=== PATIENT | male | born 1955 | race Caucasian/White ===

== ENCOUNTER 2024-08-21 13:34 | Inpatient (IN) | payer MEDICARE, SELFPAY ==
[2024-08-20] VITALS (7 sets, daily range): BP systolic 91–158; BP diastolic 59–91
[2024-08-20 12:44] LABS: % Eosinophils 5.2 % (0-6); % Immature Granulocytes 0.2 % (0-0.5); % Lymphocytes 9.8 % (20.5-51.1); % Monocytes 9.4 % (1.7-9.3); % Neutrophils 74.4 % (42.2-75.2); Absolute Basophils 0.1 10^3/uL (0-0.2); Absolute Eosinophils 0.5 10^3/uL (0-0.7); Absolute Lymphocytes 0.9 10^3/uL (1.2-3.4); Absolute Monocytes 0.8 10^3/uL (0.1-0.6); Absolute Neutrophils 6.4 10^3/uL (1.4-6.5); Hematocrit 32.5 % (39.0-52.0); Mean Corp Hgb Conc. 30.8 g/dL (33.0-37.0); Mean Corpuscular Hgb 25.8 pg (27.0-31.0); Mean Corpuscular Volume 83.8 fL (80.0-94.0); Mean Platelet Volume 9.5 fL (7.4-10.4); Nucleated Red Blood Cells % 0 % (-); Platelet Count 220 10^3/uL (130-400); Red Blood Cell Count 3.88 10^6/uL (4.70-6.10); Red Cell Dist. Width 16.4 % (11.5-14.5); White Blood Cell Count 8.7 10^3/uL (4.8-10.8)
[2024-08-20 13:16] LABS: Blood Urea Nitrogen 26 mg/dl (9-20); Calcium 7.5 mg/dl (8.4-10.2); Carbon Dioxide 24 mmol/L (22-30); Chloride 108 mmol/L (98-107); Glucose 137 mg/dl (70-99); Sodium 142 mmol/L (135-145); eGFR > 60.00
[2024-08-20 13:17] LABS: Troponin I 0.035 ng/ml
[2024-08-20] MEDS: NSS 500 IV (14:13)
[2024-08-20 14:42] LABS: Potassium 3.7 mmol/L (3.5-5.1)
[2024-08-20 17:38] LABS: Urine Albumin 4+ (Neg - Trace); Urine Bilirubin Negative (Negative); Urine Character Cloudy (Clear); Urine Color Yellow; Urine Glucose Negative (Negative); Urine Ketone Negative (Negative); Urine Leukocyte 3+ (Negative); Urine Nitrite Positive (Negative); Urine Occult Blood 4+ (Negative); Urine Urobilinogen Negative (Neg - 1+)
[2024-08-20 17:49] LABS: Urine White Cell 26-30 /HPF (0-5)
[2024-08-20 17:50] LABS: Urine Bacteria Many (Negative)
--- NOTE | 2024-08-20 18:06 | ED.GENMED ---
History of Present Illness
General
Chief Complaint: Weakness
Time Seen by Provider: 08/20/24 13:48
History of Present Illness
History of Present Illness:
68-year-old male with history of insulin-dependent diabetes, hypertension, hyperlipidemia, and congestive heart failure presents to the emergency department for evaluation of weakness and nausea beginning this morning. He feels that he cannot
ambulate steadily, typically uses a walker but required assist of 2 to get out of the wheelchair in the ER today. Denies any vomiting or diarrhea. No new medications. Denies fevers or chills.
Past History
Past History
ED Past Medical History: HTN, Hypercholesterolemia, NIDDM and Other
ED Past Surgical History: Other
Social History
Tobacco: Smoker
Alcohol: None
Drug: None
Living: snf
Employment: Not employed
Family History
Family History: Other (Noncontributory)
Review of Systems
Review of Systems
Allergies reviewed?: Yes
All Other Systems: ROS reviewed and negative except as documented in HPI and ROS
Phy Exam
Physical Exam
Physical Exam:
GEN: Well appearing, NAD, WDWN
Eyes: PERRLA, EOMs intact, no scleral icterus
HENT: NCAT, oral mucosa moist, no JVD, no cervical adenopathy.
Lungs: CTAB, no wheezes, rales, rhonchi, normal chest wall excursion
Cardiac: RRR, no M/R/G, no peripheral edema. Radial pulses 2+ bilat
Abdomen: S, NT, ND, NABS, no masses or hepatosplenomegaly
Neuro: AO x 3
MSK: No gross deformity or ecchymosis. No edema. No digital clubbing
Skin: No rashes, petechiae. Normal color, no pallor or jaundice.
Psych: Calm, cooperative, proper hygiene
Course
Orders/Labs/Results
Orders:
Orders
08/20/24 12:29
Electrocardiogram (*1) Urgent
Reason for Study: Fatigue / Weakness
EKG- Treatment ONCE
08/20/24 12:30
Basic Metabolic Panel Urgent
Complete Blood Count/With Diff Urgent
Troponin I Urgent
08/20/24 14:05
0.9% Sodium Chloride 500 ml [Nss] 500 ml IV BOLUS
CR Chest - 2 Views Urgent
Comment:
Reason For Exam: weakness
08/20/24 14:09
ALT (SGPT) Urgent
Comment: ADD ON
AST (SGOT) Urgent
Comment: ADD ON
Alkaline Phosphatase Urgent
Comment: ADD ON
Creatine Phosphokinase Urgent
Comment: ADD ON
Magnesium Urgent
Comment: ADD ON
Phosphorus Urgent
Comment: ADD ON
Potassium Urgent
TSH Reflex To Free T4 Urgent
Comment: ADD ON
Total Bilirubin Urgent
Comment: ADD ON
Vitamin B12 Urgent
Comment: ADD ON
08/20/24 16:35
Bedside Glucose- Treatment ONCE
08/20/24 17:32
Urinalysis Reflex To Culture Urgent
Date Specimen was Collected: 08/20/24
Time Specimen was Collected: 14:06
Urine Microscopic Reflex Cult Urgent
Urine Culture Urgent
AUBRIE Source: U
Specimen Description:
Date Specimen was Collected: 08/20/24
Time Specimen was Collected: 14:06
08/20/24 18:04
CefTRIAXone [Rocephin] 1,000 mg IV NOW STA
08/20/24 18:16
Vancomycin HCl [Firvanq] 125 mg PO NOW STA
08/20/24 18:22
Add On- LAB Urgent
Tests Added?: magnesium, phosphorous, AST, ALT, T. Bili, Alk Phos
08/20/24 18:40
Admit/Transfer Patient As Directed
Co-Sign Provider:
Level of Care: Observation services
Assign to:: Medical/Surgical
Physician / Group: Sandrine Jimenez
Diagnosis: generalized weakness/ possible UTI versus viral
PRN Pain Medication Management As Directed
May give lesser potent ordered pain med per pt: Yes
preference::
Protocol:: Medication orders for pain may be administered in a
manner that supports deferring to patient preference
when the pt is:
- Requesting an ordered lesser potent pain medication.
Least to most potent pain medications are defined
as: acetaminophen < NSAID < tramadol < opioids
(morphine, oxycodone, hydromorphone).
- Requesting a lesser dose of the same medication IF
ORDERED.
- Requesting a less intrusive route of administration
if both routes are prescribed by the provider (PO <
IV).
08/20/24 18:41
Add On- LAB Routine
Tests Added?: creatinine kinase
08/20/24 18:42
Code Status As Directed
Resuscitation Status: Full Code
08/20/24 18:44
COVID-19 Antigen Urgent
Source: Nasal Swab
Influenza A+B Rapid Molecular Urgent
AUBRIE Source: Nasal Swab
Specimen Description:
08/20/24 18:45
Add On- LAB Routine
Tests Added?: vitamin B12, TSH with reflex to T4
Troponin I Q6H
08/21/24 00:45
Troponin I Q6H
08/21/24 06:45
Troponin I Q6H
Abnormal Lab Results
08/20/24 08/20/24 08/20/24
12:30 17:32 18:16
RBC 3.88 L 10^6/uL
(4.70-6.10)
Hgb 10.0 L g/dL
(13.0-18.0)
Hct 32.5 L %
(39.0-52.0)
MCH 25.8 L pg
(27.0-31.0)
MCHC 30.8 L g/dL
(33.0-37.0)
RDW 16.4 H %
(11.5-14.5)
Absolute Lymphs (auto) 0.9 L 10^3/uL
(1.2-3.4)
Absolute Monos (auto) 0.8 H 10^3/uL
(0.1-0.6)
Lymphocytes % 9.8 L %
(20.5-51.1)
Monocytes % 9.4 H %
(1.7-9.3)
Chloride 108 H mmol/L
(98-107)
BUN 26 H mg/dl
(9-20)
Glucose 137 H mg/dl
(70-99)
Calcium 7.5 L mg/dl
(8.4-10.2)
Troponin I 0.035 H* ng/ml
Ur Occult Blood Reflex 4+ A
(Negative)
Urine Nitrite (Reflex) Positive A
(Negative)
Leukocyte Esterase Rfl 3+ A
(Negative)
Urine RBC 3-6 A /HPF
(0-2)
Urine WBC (Reflex) 26-30 A /HPF
(0-5)
Urine Bacteria (Reflex) Many A
(Negative)
Urine Albumin (Reflex) 4+ A
(Neg - Trace)
POC Glucose 113 H mg/dl
(70-99)
08/20/24 12:30
08/20/24 14:09
Vital Signs
Initial and Last Documented VS:
Initial Vital Signs
Temp Pulse Resp BP Pulse Ox
98.2 F 75 18 146/68 98
08/20/24 12:27 08/20/24 12:27 08/20/24 12:27 08/20/24 12:27 08/20/24 12:27
Last Documented Vital Signs
Temp Pulse Resp BP Pulse Ox
98.2 F 67 18 91/73 97
08/20/24 12:27 08/20/24 17:44 08/20/24 17:44 08/20/24 17:44 08/20/24 17:44
MDM/Problems Addressed
MDM/Problems Addressed:
Patient's urinalysis is positive suggesting acute UTI as a of his weakness. Prior urine cultures reviewed showing there should be adequate sensitivity to cephalosporins, Rocephin ordered. Oral vancomycin also given due to recent history of C.
difficile colitis. Will admit to the hospital service due to severe weakness associated with UTI
*Critical Care Note
Total Time (30-74mins, 75-104mins- exclusive of procedures): Not Applicable
Update Note
Update Note:
Addendum: In regards to the patient's troponin elevation it is minimal at this time and is quite consistent with prior troponin assessments. His EKG shows changes compatible with LVH which has been noted on prior EKG tracings.
ED Attending Note
-
Portions of this chart may have been created with voice recognition software.� Occasional wrong word or��sound alike� substitutions may have occurred due to the inherent limitations of voice recognition software.
Discharge Plan
Departure
Patient Disposition: Admit
Date of Disposition: 08/20/24
Time of Disposition: 18:09
Admit to: Med/Surg
Presentation/result/management discussed w/ accepting MD/DO: Hospitalist
Discharge Problem:
Urinary tract infection
Prescriptions:
No Action
atorvastatin 80 mg tablet
80 mg PO HS
carvedilol 3.125 mg tablet
3.125 mg PO BID
gabapentin 300 mg Capsule
300 mg PO Q8H
sertraline 50 mg tablet
25 mg PO HS
lansoprazole 15 mg Capsule,Delayed Release(Dr/Ec)
15 mg PO DAILY
insulin lispro [Humalog U-100 Insulin] 100 unit/mL Solution
0 sliding scale dose SC DIRECTED
Rx Instructions:
06/16/2023, if 141-200 = 1 unit; 201-250 = 2 units; 251-300 = 3 units; 301-350 = 4 units; 351+ = 5 units.
potassium chloride 20 mEq Tablet,Er Particles/Crystals
20 meq PO DAILY Qty: 0 0RF
furosemide [Lasix] 80 mg tablet
40 mg PO BID
Referrals:
Kilo Jones I., DO [Family Provider] -
Interventions
Interventions:
*Risk Screen - Suicide Last Done: 08/20/24 12:27
*Neglect/Abuse Screening Last Done: 08/20/24 12:27
ED- Fall Risk Assessment Last Done: 08/20/24 14:21
ED- Cardiac Assessment Last Done: 08/20/24 14:21
ED- Neurological Assessment Last Done: 08/20/24 14:21
ED- Pulmonary Assessment Last Done: 08/20/24 14:21
Discharge Date and Time
Print Language: UGANDAN
--- NOTE | 2024-08-20 18:16 | HPS.HSE ---
Addendum entered and electronically signed by Sandrine Jimenez MD 08/20/24 23:53:
SCD's for DVT PPx; avoid lovenox in setting of coagulapathy
Addendum entered and electronically signed by Sandrine Jimenez MD 08/20/24 19:47:
continue oral Vanc for C. Diff prophylaxis while on antibiotics given hx C. diff
Original Note:
Family Physician
-
Family Physician: Kilo Jones
Chief Complaint
-
weakness
History of Present Illness
Mr. Homer Epps is a 68 yo man with hx C. 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
weakness and nausea.
At baseline patient uses a walker but required assist of 2 to get out of wheelchair in ER today. He states he was in usual state of health yesterday but woke up today not feeling well. No fevers. No chest pain. No vomiting or diarrhea but feels
nauseated and very weak. No abdominal pain and no dysuria.
He lives at home in a split level with family which includes two high-school aged kids. No one is currently sick at home.
Medical History
Past Medical History
Past Medical History: Reports Other
Additional Past Medical History:
Past medical history reviewed
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
Diabetes mellitus
Hypertension
Peripheral vascular disease
Multivalvular heart disease
Ambulatory dysfunction
History of acute blood loss anemia attributed to GI bleed
Recurrent GI bleed
Chronic kidney disease with recent acute renal failure
Diabetic foot on the right foot status post skin graft
Social history: Currently resident of snf, no smoking alcohol use, ambulate with physical therapist assistant.
Family history: Positive hypertension, diabetes, carotid disease and stroke
Past Surgical History: Reports Other
Social History
Unable to obtain full social history at this time due to: Other
Family History
Family History: Other
Allergies / Home Medications
Allergies reflects when Allergies were last updated in [email or web address].
Home Medications with original date entered in [email or web address]
Allergy/Medication List:
Allergies
Allergy/AdvReac Type Severity Reaction Status Date / Time
No Known Allergies Allergy Verified 08/20/24 12:29
Home Medications
atorvastatin 80 mg tablet 80 mg PO HS High cholesterol 11/22/22
carvedilol 3.125 mg tablet 3.125 mg PO BID Blood pressure 11/22/22
gabapentin 300 mg capsule 300 mg PO Q8H Neurological Condition 11/22/22
sertraline 50 mg tablet 25 mg PO HS Mental Health/Anxiety 04/18/23
insulin lispro 100 unit/mL subcutaneous solution (Humalog U-100 Insulin) 0 sliding scale dose SC DIRECTED Diabetes 06/16/23
lansoprazole 15 mg capsule,delayed release 15 mg PO DAILY Gastrointestinal Issue 06/16/23
potassium chloride 20 mEq tablet,extended release(part/cryst) 20 meq PO DAILY Electrolyte Repletion #0 tabs 06/30/23
furosemide 80 mg tablet (Lasix) 40 mg PO BID Fluid retention/Swelling 08/20/24
Review of Systems
-
History Source: Patient
A 12 point ROS was completed and negative except as noted: Yes
Physical Exam
Vital Signs
Vital Signs
Temp Pulse Resp BP Pulse Ox
98.2 F 67 18 91/73 97
08/20/24 12:27 08/20/24 17:44 08/20/24 17:44 08/20/24 17:44 08/20/24 17:44
Physical Exam
General: No Apparent Distress and Conversant
HEENT: PERRLA
Respiratory: Clear; No Wheezes
Cardiac: S1/S2 and Regular Rhythm
GI: Soft and Non Tender
Musculoskeletal: No Edema
Skin: Warm and Dry; No Rash
Neuro: AO x 3 and Nonfocal/grossly intact (generalized weakness)
Psych: Calm
Laboratory Results
-
08/20/24 12:30
08/20/24 14:09
Laboratory Results
Total Bilirubin Cancelled 08/20/24 12:30
AST Cancelled 08/20/24 12:30
ALT Cancelled 08/20/24 12:30
Alkaline Phosphatase Cancelled 08/20/24 12:30
Troponin I 0.035 ng/ml H* 08/20/24 12:30
Data Reviewed
-
Diagnostic Radiology: Report Reviewed by me
Lab Data: Labs Reviewed by me
Impression/Plan
-
Mr. Homer Epps is a 68 yo man with hx C. 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
weakness and nausea.
Triage VS: T 98.2, P 75, RR 18, BP 146/68, SpO2 98%
LABS: Na 142, K+ 3.7, Cl 108, CO2 24, BUN 26, Cr 1.1, Glucose 137, Ca 7.5, WBC 8.7, Hg 10.0, PLT 220
Trop 0.035
UA with 26-30 WBC
CXR
IMPRESSION:
No active cardiopulmonary disease.
Weakness
-possible UTI versus viral infection
-check Flu and covid
-admit to observation
-PT/OT
Non-Ischemic OR Troponin Elevation
-denies chest pain, will trend Troponin
HFmrEF
-resume home Lasix dosing tomorrow with K repletion
-patient appears euvolemic on exam
-INSURANCE ADJUSTOR Coreg
IDDM
-patient is only on sliding scale at home
-ISS low
-diabetic diet
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
-anti-pLT avoided per prior notes
Essential HtN
-INSURANCE ADJUSTOR Coreg
HLD
-added on CK, hold statin until results
GERD - INSURANCE ADJUSTOR PPI
Depression - INSURANCE ADJUSTOR Zoloft
DVT PPx lovenox subQ
FULL CODE
[2024-08-20 18:17] LABS: Glucose - Point of Care 113 mg/dl (70-99)
[2024-08-20] MEDS: ROCEPHIN 1000 MG IV (18:19)
[2024-08-20 19:14] LABS: ALT (SGPT) 12 U/L (0-50); AST (SGOT) 15 U/L (17-59); Alkaline Phosphatase 95 U/L (38-126); Creatine Phosphokinase 55 U/L (55-170); Magnesium 1.8 mg/dl (1.6-2.3); Total Bilirubin 0.8 mg/dl (0.2-1.3)
[2024-08-20 19:26] LABS: COVID-19 Antigen Negative (Negative)
[2024-08-20 20:09] LABS: TSH Reflex To Free T4 2.43 uIU/ml (0.47-4.68)
[2024-08-20 20:28] LABS: Vitamin B12 361 pg/ml (239-931)
[2024-08-20] MEDS: FIRVANQ 125 MG PO (21:01)
[2024-08-20 21:39] LABS: Troponin I 0.194 ng/ml
[2024-08-21] VITALS (21 sets, daily range): BP systolic 130–166; BP diastolic 47–80; PULSE 67; O2SAT 97; BMI 26.4
[2024-08-21] MEDS: NEURONTIN 300 MG PO ×4 (01:30→21:18)
[2024-08-21] MEDS: LIPITOR 80 MG PO ×2 (01:30→21:18)
[2024-08-21] MEDS: ZOLOFT 25 MG PO ×2 (01:30→21:18)
[2024-08-21] MEDS: COREG 3.125 MG PO ×3 (01:30→21:18)
[2024-08-21 02:08] LABS: Troponin I 0.201 ng/ml
[2024-08-21 05:59] LABS: Hematocrit 29.4 % (39.0-52.0); Mean Corp Hgb Conc. 30.6 g/dL (33.0-37.0); Mean Corpuscular Hgb 25.6 pg (27.0-31.0); Mean Corpuscular Volume 83.5 fL (80.0-94.0); Platelet Count 192 10^3/uL (130-400); Red Blood Cell Count 3.52 10^6/uL (4.70-6.10); Red Cell Dist. Width 16.1 % (11.5-14.5); White Blood Cell Count 6.9 10^3/uL (4.8-10.8)
[2024-08-21 06:23] LABS: Blood Urea Nitrogen 25 mg/dl (9-20); Carbon Dioxide 25 mmol/L (22-30); Chloride 109 mmol/L (98-107); Glucose 120 mg/dl (70-99); Magnesium 1.9 mg/dl (1.6-2.3); Potassium 3.5 mmol/L (3.5-5.1); Sodium 142 mmol/L (135-145); eGFR > 60.00
[2024-08-21 07:26] LABS: Troponin I 0.187 ng/ml
[2024-08-21 09:30] LABS: Glucose - Point of Care 115 mg/dl (70-99)
[2024-08-21] MEDS: NOVOLOG FLEXPEN-LOW RESISTANCE SC (09:37)
[2024-08-21] MEDS: PROTONIX 20 MG PO (09:39)
[2024-08-21] MEDS: FIRVANQ 125 MG PO ×2 (09:39→21:20)
[2024-08-21] MEDS: KCL 20 MEQ PO (09:39)
[2024-08-21] MEDS: LASIX 40 MG PO ×2 (09:39→15:35)
[2024-08-21 10:05] LABS: Glycohemoglobin (HgbA1c) 5.7 % (4.0-5.6)
--- NOTE | 2024-08-21 12:33 | W.PN.HOSP.TC ---
Today's Communication/Plan
-
continue IV abx pending culture
C. Diff prophylaxis
Echo for abnormal trops
Assessment / Plan
Assessment / Plan
Assessment:
Generalized weakness
- possible viral etiology vs UTI (UA abnormal)
- COVID/Flu negative. CXR negative-
- empiric Rocephin, day 1 pending culture
- PT/OT
Prior hx of C. Diff
- continue PO Vanco prophylaxis while on IV Abx
Non-Ischemic PR Troponin Elevation
- denies chest pain
- trop peaked .201
- 2D echo
HFmrEF
- continue Lasix with concurrent Kcl replacement
- patient appears euvolemic on exam
- HELPER MARBLE FINISHER Coreg
IDDM
- patient is only on sliding scale at home
- ISS low
- diabetic diet
- A1c 5.7%
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
- anti-pLT and anti-coags to be avoided per prior notes from hematology
- if signs of bleeding, will need to contact hematology urgently
Chronic stable anemia
- monitor Hb
Essential HtN
- HELPER MARBLE FINISHER Coreg
HLD
- continue Statin
GERD - HELPER MARBLE FINISHER PPI
Depression - HELPER MARBLE FINISHER Zoloft
DVT ppx: SCDs
Code: Full
Anticipated Discharge: > 48 hours
Subjective/Interval History
-
Date of Service: August 21, 2024
denies any complaints currently
Objective Data
-
Labs:
Laboratory Results
08/21/24
05:44
WBC 6.9
Hgb 9.0 L
Hct 29.4 L
Plt Count 192
Sodium 142
Potassium 3.5
Chloride 109 H
Carbon Dioxide 25
BUN 25 H
Creatinine 1.1
Glucose 120 H
Calcium 8.0 L
Vital Signs:
Vital Signs
Temp Pulse Resp BP Pulse Ox
97.5 F 72 23 155/70 97
08/21/24 08:59 08/21/24 09:15 08/21/24 09:15 08/21/24 09:08 08/21/24 08:45
Physical Exam
-
General: No Apparent Distress
HEENT: Normocephalic and Atraumatic
Respiratory: Negative Wheezes
Cardiac: Regular Rhythm and S1/S2
GI: Soft and Nontender
Musculoskeletal: No Edema
Neuro: AO x 3
Psych: Calm
Data Reviewed
-
Total Time Spent with Patient (in minutes): 41
Labs: Labs Reviewed by me
[2024-08-21 13:05] LABS: Glucose - Point of Care 169 mg/dl (70-99)
[2024-08-21] MEDS: NOVOLOG FLEXPEN-LOW RESISTANCE 1 UNITS SC ×2 (14:14→18:06)
[2024-08-21] MEDS: STERILE WATER FOR INJECTION 10 ML IV (18:02)
[2024-08-21] MEDS: ROCEPHIN 1000 MG IV (18:02)
[2024-08-21 18:09] LABS: Glucose - Point of Care 154 mg/dl (70-99)
[2024-08-21] MEDS: DESENEX/MITRAZOL/ZEASORB 1 APPLIC TOPICAL (21:20)
[2024-08-21 23:40] LABS: Glucose - Point of Care 141 mg/dl (70-99)
[2024-08-22 02:00] VITALS: BP 153/76; BMI 26.8
--- NOTE | 2024-08-22 03:02 | PTCARENOTE ---
Pt admitted to 3W. Pt AAOx3. Unsteady, ambulating with walker. Pt afebrile, VSS. Oriented to room. Bed in lowest position and call dover within reach.
[2024-08-22 06:29] LABS: Hematocrit 30.5 % (39.0-52.0); Hemoglobin 9.4 g/dL (13.0-18.0); Mean Corp Hgb Conc. 30.8 g/dL (33.0-37.0); Mean Corpuscular Hgb 25.5 pg (27.0-31.0); Mean Corpuscular Volume 82.9 fL (80.0-94.0); Mean Platelet Volume 10.1 fL (7.4-10.4); Platelet Count 211 10^3/uL (130-400); Red Blood Cell Count 3.68 10^6/uL (4.70-6.10); Red Cell Dist. Width 16.1 % (11.5-14.5); White Blood Cell Count 6.8 10^3/uL (4.8-10.8)
[2024-08-22 06:52] LABS: Blood Urea Nitrogen 25 mg/dl (9-20); Calcium 7.9 mg/dl (8.4-10.2); Carbon Dioxide 23 mmol/L (22-30); Chloride 109 mmol/L (98-107); Estimated Creatinine Clearance 66 ml/min; Glucose 119 mg/dl (70-99); Potassium 4.1 mmol/L (3.5-5.1); Sodium 143 mmol/L (135-145); eGFR > 60.00
[2024-08-22 08:16] VITALS: BP 168/85
[2024-08-22] MEDS: NOVOLOG FLEXPEN-LOW RESISTANCE SC (09:05)
[2024-08-22 09:06] LABS: Glucose - Point of Care 102 mg/dl (70-99)
[2024-08-22] MEDS: DESENEX/MITRAZOL/ZEASORB 1 APPLIC TOPICAL ×2 (09:06→21:01)
[2024-08-22] MEDS: NEURONTIN 300 MG PO ×3 (09:06→20:58)
[2024-08-22] MEDS: KCL 20 MEQ PO (09:06)
[2024-08-22] MEDS: FIRVANQ 125 MG PO ×2 (09:06→20:58)
[2024-08-22] MEDS: LASIX 40 MG PO ×2 (09:06→15:10)
[2024-08-22] MEDS: COREG 3.125 MG PO ×2 (09:06→20:58)
[2024-08-22] MEDS: PROTONIX 20 MG PO (09:06)
--- NOTE | 2024-08-22 11:48 | W.PN.HOSP.TC ---
Today's Communication/Plan
-
await urine culture; continue Rocephin
home/VN at dc
OP Cardiology f/u
Assessment / Plan
Assessment / Plan
Assessment:
Generalized weakness
- possible viral etiology vs UTI (UA abnormal)
- COVID/Flu negative. CXR negative.
- continue empiric Rocephin, day 2 pending culture
- PT/OT - home VN at discharge
Prior hx of C. Diff
- continue PO Vanco prophylaxis while on IV Abx
Non-Ischemic DC Troponin Elevation
- denies chest pain
- trop peaked .201
- 2D echo shows changes from 06/2023 including ejection fraction has decreased from 40-45% to 30-35%. Aortic stenosis has worsened from mild to moderate-severe. PA systolic pressure is increased from 48 mmHg to 73 mmHg.
- no active chest pain or CHF symptoms
- needs office visit with OP Cardiology Dr. Estes ([facility]).
HFmrEF
- continue Lasix with concurrent Kcl replacement
- patient appears euvolemic on exam
- BUYER INTERN Coreg
IDDM
- patient is only on sliding scale at home
- ISS low
- diabetic diet
- A1c 5.7%
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
- anti-pLT and anti-coags to be avoided per prior notes from hematology
- if signs of bleeding, will need to contact hematology urgently
Chronic stable anemia
- monitor Hb
Essential HtN
- BUYER INTERN Coreg
HLD
- continue Statin
GERD - BUYER INTERN PPI
Depression - BUYER INTERN Zoloft
DVT ppx: SCDs
Code: Full
Anticipated Discharge: Within 24 hours
Subjective/Interval History
-
Date of Service: August 22, 2024
no new complaints
weakness improving
urine culture still pending
Objective Data
-
Labs:
Laboratory Results
08/22/24
06:07
WBC 6.8
Hgb 9.4 L
Hct 30.5 L
Plt Count 211
Sodium 143
Potassium 4.1
Chloride 109 H
Carbon Dioxide 23
BUN 25 H
Creatinine 1.2
Glucose 119 H
Calcium 7.9 L
Vital Signs:
Vital Signs
Temp Pulse Resp BP Pulse Ox
98.3 F 76 20 168/85 93
08/22/24 08:16 08/22/24 08:16 08/22/24 08:16 08/22/24 08:16 08/22/24 08:16
I&O
08/21/24 08/22/24 08/23/24
06:59 06:59 06:59
Intake Total 480 / 480
Balance 480 / 480
Physical Exam
-
General: No Apparent Distress
HEENT: Normocephalic and Atraumatic
Respiratory: Negative Wheezes
Cardiac: Regular Rhythm and S1/S2
GI: Soft and Nontender
Genito-urinary: No Costovertebral Tender
Neuro: AO x 3
Psych: Calm
Data Reviewed
-
Total Time Spent with Patient (in minutes): 42
Labs: Labs Reviewed by me
[2024-08-22 11:49] LABS: Glucose - Point of Care 185 mg/dl (70-99)
[2024-08-22] MEDS: NOVOLOG FLEXPEN-LOW RESISTANCE 1 UNITS SC ×2 (11:54→16:57)
--- NOTE | 2024-08-22 11:56 | CM ---
Addendum entered by JOAQUIN Chinchilla 08/22/24 12:08:
Consult for VNA. SPoke to patient. He would like [facility] home care, RN, PT OT that came to house when he was d/c from the SNF. Referral put in allscripts.
Original Note:
Met Homer in room. He reports after 4 years he was able to leave [facility]. He lives with his SO, Humera and her adult son. They live in a split level home. He goes in around the patio. He has one step up to enclosed patio. He stays on that
level. He has family room and powder room to use.
He has a half step down to bedroom. He sits in w/c and wheels around to powder room. He washes at sink.
He wheels to top of the half step and then uses walker to go to his bedroom area.
Humera does cooking, cleaning, shops, laundry.
PCP Dr. Randy Cervantes
PHarmacy: [facility] [address] in [place].
PLAN: HOme
He also has a sister Antionette who is his POA.
[2024-08-22 15:29] VITALS: BP 157/78
[2024-08-22 16:47] LABS: Glucose - Point of Care 177 mg/dl (70-99)
[2024-08-22] MEDS: STERILE WATER FOR INJECTION 10 ML IV (16:58)
[2024-08-22] MEDS: ROCEPHIN 1000 MG IV (16:58)
[2024-08-22] MEDS: LIPITOR 80 MG PO (20:58)
[2024-08-22] MEDS: ZOLOFT 25 MG PO (20:58)
[2024-08-22 23:43] VITALS: BP 151/72
[2024-08-23 07:41] LABS: Hematocrit 30.7 % (39.0-52.0); Hemoglobin 9.4 g/dL (13.0-18.0); Mean Corp Hgb Conc. 30.6 g/dL (33.0-37.0); Mean Corpuscular Hgb 25.8 pg (27.0-31.0); Mean Corpuscular Volume 84.1 fL (80.0-94.0); Mean Platelet Volume 10.2 fL (7.4-10.4); Platelet Count 204 10^3/uL (130-400); Red Blood Cell Count 3.65 10^6/uL (4.70-6.10); Red Cell Dist. Width 15.9 % (11.5-14.5); White Blood Cell Count 7.1 10^3/uL (4.8-10.8)
[2024-08-23 07:54] LABS: Blood Urea Nitrogen 24 mg/dl (9-20); Calcium 8.1 mg/dl (8.4-10.2); Carbon Dioxide 26 mmol/L (22-30); Chloride 107 mmol/L (98-107); Estimated Creatinine Clearance 61 ml/min; Glucose 122 mg/dl (70-99); Potassium 4.1 mmol/L (3.5-5.1); Sodium 143 mmol/L (135-145); eGFR > 60.00
[2024-08-23 08:08] VITALS: BP 128/64
[2024-08-23] MEDS: NEURONTIN 300 MG PO (09:33)
[2024-08-23] MEDS: KCL 20 MEQ PO (09:33)
[2024-08-23] MEDS: LASIX 40 MG PO (09:33)
[2024-08-23] MEDS: COREG 3.125 MG PO (09:34)
[2024-08-23] MEDS: PROTONIX 20 MG PO (09:34)
[2024-08-23] MEDS: DESENEX/MITRAZOL/ZEASORB 1 APPLIC TOPICAL (09:35)
[2024-08-23 09:57] LABS: Glucose - Point of Care 167 mg/dl (70-99)
[2024-08-23] MEDS: NOVOLOG FLEXPEN-LOW RESISTANCE 1 UNITS SC ×2 (10:36→13:15)
[2024-08-23] MEDS: FIRVANQ 125 MG PO (10:52)
[2024-08-23 11:42] LABS: Glucose - Point of Care 153 mg/dl (70-99)
--- NOTE | 2024-08-23 12:44 | W.PN.HOSP.TC ---
Addendum entered and electronically signed by Chidi Wen MD 08/23/24 12:59:
multi-drug resistant Enterobacter Cloacae UTI
Original Note:
Today's Communication/Plan
-
dc to home VN
Assessment / Plan
Assessment / Plan
Assessment:
Generalized weakness related to multi-drug resistant Enterobacter Cloacae
- COVID/Flu negative. CXR negative.
- dc on Cefdinir x 7 day further days (total 10 day course)
- PT/OT - home VN at discharge
Prior hx of C. Diff
- continue PO Vanco x 7 days + 7 days further for prophylaxis
Non-Ischemic ME Troponin Elevation
- denies chest pain
- trop peaked .201
- 2D echo shows changes from 06/2023 including ejection fraction has decreased from 40-45% to 30-35%. Aortic stenosis has worsened from mild to moderate-severe. PA systolic pressure is increased from 48 mmHg to 73 mmHg.
- no active chest pain or CHF symptoms
- needs office visit with OP Cardiology Dr. Estes ([facility]).
HFmrEF
- continue Lasix with concurrent Kcl replacement
- patient appears euvolemic on exam
- BUSINESS CONTINUITY MANAGEMENT DIRECTOR Coreg
IDDM
- patient is only on sliding scale at home
- ISS low
- diabetic diet
- A1c 5.7%
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
- anti-pLT and anti-coags to be avoided per prior notes from hematology
- if signs of bleeding, will need to contact hematology urgently
Chronic stable anemia
- monitor Hb
Essential HtN
- BUSINESS CONTINUITY MANAGEMENT DIRECTOR Coreg
HLD
- continue Statin
GERD - BUSINESS CONTINUITY MANAGEMENT DIRECTOR PPI
Depression - BUSINESS CONTINUITY MANAGEMENT DIRECTOR Zoloft
DVT ppx: SCDs
Code: Full
More than 30 minutes spent in discharge including
Final examination of the patient
Summarizing hospital stay
Instructions for continuing care to all relevant caregivers
Preparation of discharge records, prescriptions, and referral forms
Total time spent (in minutes): 41
Anticipated Discharge: Today
Subjective/Interval History
-
Date of Service: August 23, 2024
no new complaints
Objective Data
-
Labs:
Laboratory Results
08/23/24
07:12
WBC 7.1
Hgb 9.4 L
Hct 30.7 L
Plt Count 204
Sodium 143
Potassium 4.1
Chloride 107
Carbon Dioxide 26
BUN 24 H
Creatinine 1.3
Glucose 122 H
Calcium 8.1 L
Vital Signs:
Vital Signs
Temp Pulse Resp BP Pulse Ox
97.8 F 72 20 128/64 93
08/23/24 08:08 08/23/24 09:33 08/23/24 08:08 08/23/24 09:34 08/23/24 08:08
I&O
08/22/24 08/23/24 08/24/24
06:59 06:59 06:59
Intake Total 480 / 480 820 / 820
Balance 480 / 480 820 / 820
Physical Exam
-
General: No Apparent Distress
HEENT: Normocephalic and Atraumatic
Respiratory: Negative Wheezes
Cardiac: Regular Rhythm and S1/S2
GI: Soft and Nontender
Musculoskeletal: No Edema
Neuro: AO x 3
Hematologic / Lymphatic: No Lymphadenopathy
Psych: Calm
Data Reviewed
-
Total Time Spent with Patient (in minutes): 41
Labs: Labs Reviewed by me
--- NOTE | 2024-08-23 12:57 | W.DS.TRANS ---
DC Summary - Software Specialist
-
Discharge Instructions:
Discharge Diagnosis/Procedures UTI
Diet Diabetic, Carb Controlled
Activity As tolerated
Other Services OT,VN,PT
Instructions:
Stand-Alone Forms:
Changes to Home Medications: No
Discharge Medications:
DC Medications w/original date entered in [employer]
atorvastatin 80 mg tablet 80 mg PO HS High cholesterol 11/22/22
carvedilol 3.125 mg tablet 3.125 mg PO BID Blood pressure 11/22/22
gabapentin 300 mg capsule 300 mg PO Q8H Neurological Condition 11/22/22
sertraline 50 mg tablet 25 mg PO HS Mental Health/Anxiety 04/18/23
insulin lispro 100 unit/mL subcutaneous solution (Humalog U-100 Insulin) 0 sliding scale dose SC DIRECTED Diabetes 06/16/23
lansoprazole 15 mg capsule,delayed release 15 mg PO DAILY Gastrointestinal Issue 06/16/23
potassium chloride 20 mEq tablet,extended release(part/cryst) 20 meq PO DAILY Electrolyte Repletion #0 tabs 06/30/23
furosemide 80 mg tablet (Lasix) 40 mg PO BID Fluid retention/Swelling 08/20/24
cefdinir 300 mg capsule 300 mg PO BID #14 caps 08/23/24
vancomycin 125 mg capsule 125 mg PO BID 14 days #28 caps 08/23/24
Home Medication Changes
Pending Results: No
Total time spent discharging patient (in min): 41
[2024-08-23 13:28] VITALS: BP 149/65
[2024-08-23] MEDS: STERILE WATER FOR INJECTION 10 ML IV (13:41)
[2024-08-23] MEDS: ROCEPHIN 1000 MG IV (13:42)
--- NOTE | 2024-08-23 14:10 | CM ---
CM following re: d/c planning.
Pt for d/c today.
Plan to return home with [facility] VN.
.
[facility] updated on pt's d/c today.
== END 2024-08-23 15:30 | disposition home health service (06) | DRG 690 ==
LOC: 3 WEST ACU 13:34
PROVIDERS: Emergency Medicine; Physician Assistant; ADMITTING PHYSICIAN Student in an Organized Health Care Education/Training Program; ATTENDING PHYSICIAN Internal Medicine; EMERGENCY PHYSICIAN Student in an Organized Health Care Education/Training Program; FAMILY PHYSICIAN Family Medicine
DX: N39.0 Urinary tract infection, site not specified (principal); Z16.24 Resistance to multiple antibiotics; I50.42 Chronic combined systolic (congestive) and diastolic (congestive) heart failure; I5A Non-ischemic myocardial injury (non-traumatic); I13.0 Hypertensive heart and chronic kidney disease with heart failure and stage 1 through stage 4 chronic kidney disease, or unspecified chronic kidney disease; F17.200 Nicotine dependence, unspecified, uncomplicated; B95.5 Unspecified streptococcus as the cause of diseases classified elsewhere; Z11.52 Encounter for screening for COVID-19; Z79.4 Long term (current) use of insulin; E11.51 Type 2 diabetes mellitus with diabetic peripheral angiopathy without gangrene; E11.22 Type 2 diabetes mellitus with diabetic chronic kidney disease; N18.9 Chronic kidney disease, unspecified; E78.00 Pure hypercholesterolemia, unspecified; K21.9 Gastro-esophageal reflux disease without esophagitis; F41.9 Anxiety disorder, unspecified; F32.A Depression, unspecified; B96.89 Other specified bacterial agents as the cause of diseases classified elsewhere; D64.9 Anemia, unspecified; I08.0 Rheumatic disorders of both mitral and aortic valves; Z86.73 Personal history of transient ischemic attack (TIA), and cerebral infarction without residual deficits
CPT/HCPCS: 71046; 80048; 81003; 81015; 82247; 82550; 82607; 82962; 83036; 83735; 84075; 84100; 84132; 84443; 84450; 84460; 84484; 85025; 85027; 87070; 87077; 87086; 87147; 87186; 87502; 87811; 93005; 93306; 96361; 96374; 99285